=== PATIENT | male | born 2000 | race Caucasian/White ===

== ENCOUNTER 2024-03-28 10:59 | Emergency (ER) | payer OTHER, SELFPAY ==
[2024-03-28 11:06] VITALS: BP 140/87; PULSE 85; TEMP 36.4; O2SAT 99; BMI 21.0
--- NOTE | 2024-03-28 11:33 | ED_ITS ---
HPI HPI - General Adult General Chief complaint: Ear Stated complaint: RIGHT EAR PAIN/ POSSIBLE FLUID INSIDE Time Seen by Provider: 03/28/24 11:12 Source: patient Mode of arrival: walk-in History of Present Illness HPI narrative: Presenting to the emergency department for evaluation of right ear irritation. Patient states that he was he was working on the fuel line, states the feeling got disconnected, splashed him on the right side of his head, it got soaked into his hair, and then dripped into his right ear. Patient states that he can still feel it in his right ear irritation and burning. Patient states that he went home, showered, was able to get it off everywhere except that he feels it still on the inside of his right ear. He has no difficulty hearing, no burning, no pain, just can feel it in there like any of a scratch on your arm that irritates and bothers you. No other complaints at this time Related Data Home Medications ?Medication ?Instructions ?Recorded ?Confirmed No Known Home Medications 03/28/24 03/28/24 Allergies Allergy/AdvReac Type Severity Reaction Status Date / Time No Known Drug Allergies Allergy Verified 03/28/24 11:06 Opioid HPI Opioid Management Most Recent Opioid Data: 2 No Data to Display Review of Systems ROS Narrative Negative unless otherwise stated in the HPI Exam Narrative Exam Narrative: General: NAD, AAOx3, no distress Eyes: PERRL, EOMI, lids/conjunctiva normal. HEENT: NCAT, mmm, no facial or chemical casas were noted, patient's right TM is occluded with cerumen impaction, the piece of cerumen that is in there has the order of fuel, patient is clean, showered, hair and skin and face and [place] do not have the order of fuel, but the inside of patient's ear where there is cerumen has absorbed the fuel malodorous Constitutional Vital Signs, click to edit/add: Last Vital Signs Temp 97.6 F 03/28/24 11:06 Pulse 85 03/28/24 11:06 Resp 18 03/28/24 11:06 BP 140/87 03/28/24 11:06 Pulse Ox 99 03/28/24 11:06 O2 Del Method Room Air 03/28/24 11:06 Course Vital Signs Vital signs: Vital Signs Temperature 97.6 F 03/28/24 11:06 Pulse Rate 85 03/28/24 11:06 Respiratory Rate 18 03/28/24 11:06 Blood Pressure 140/87 03/28/24 11:06 Pulse Oximetry 99 03/28/24 11:06 Oxygen Delivery Method Room Air 03/28/24 11:06 Temperature 97.6 F 03/28/24 11:06 Pulse Rate 85 03/28/24 11:06 Respiratory Rate 18 03/28/24 11:06 Blood Pressure 140/87 03/28/24 11:06 Pulse Oximetry 99 03/28/24 11:06 Oxygen Delivery Method Room Air 03/28/24 11:06 Medical Decision Making MDM Narrative Medical decision making narrative: [facility] Patient with history as above presented with fuel exposure, cerumen impaction. History obtained from patient. Patient was nontoxic, stable. Ambulatory. Exam as above. Differential diagnosis considered. Overall presentation is consistent with cerumen impaction that is absorbed fuel Patient's ear was irrigated, large cerumen impaction was removed. Ear was flushed, Was flushed. There is no chemical irritation or casas. Source of fuel was removed. Advanced guidance has been given. Vss, pex is benign at this time. Pt to fu with pcp 1-2 days for reeval, rter should sx worsen, persist or become worrysome in any way. All incidental laboratory studies, EKG, radiologic findings have been noted and discussed with patient. Patient was reevaluated with a benign exam at this time. Pt expressed understanding and agreement with plan of care at this time. Will fu as planned. Pt stable for discharge. Medical Records Medical records reviewed: Yes I reviewed the patient's medical records Discharge Plan Discharge Stand Alone Forms: Portal Instructions Chief Complaint: Ear Clinical Impression: Cerumen impaction, Chemical exposure Patient Disposition: Home, Self-Care Time of Disposition Decision: 11:37 Condition: Good Prescriptions / Home Meds: No Action No Known Home Medications Print Language: Irish Additional Instructions: Follow-up with your PCP in the next 1 to 2 days. Return to the emergency department should symptoms worsen or become worrisome in any way. Referrals: Charlene Torres MD [Primary Care Provider] - 1 week
== END 2024-03-28 11:57 | disposition home or self-care (01) ==
PROVIDERS: Emergency Provider Emergency Medicine; PCP Family Medicine
DX: H61.21 Impacted cerumen, right ear (principal); Z77.098 Contact with and (suspected) exposure to other hazardous, chiefly nonmedicinal, chemicals
CPT/HCPCS: 69209; 99282